=== PATIENT | male | born 1955 | race Caucasian/White ===

== ENCOUNTER 2022-04-23 08:55 | Emergency (ER) | payer MEDICARE, BC ==
[2022-04-23] MEDS ORDERED: Sodium Chloride 0.9% 1,000 ML IV ONE (09:00)
[2022-04-23] MEDS ORDERED: Amiodarone 150 MG in Dextrose 5% in Water 100 ML IV ONE ×2 (09:40)
[2022-04-23 10:01] LABS: CARBON DIOXIDE,CO2 23.6 mmol/L (21.0-32.0); POTASSIUM,K 3.7 mmol/L (3.5-5.1)
== END 2022-04-23 20:05 ==
LOC: MW.ED 08:55
DX: I47.2 Ventricular tachycardia (principal); I10 Essential (primary) hypertension; Z79.899 Other long term (current) drug therapy; Z20.822 Contact with and (suspected) exposure to COVID-19
CPT/HCPCS: 36415; 71045; 80053; 83735; 83880; 84439; 84443; 84484; 85025; 85610; 85730; 93005; 96361; 96365; 96366; 96376; 99285; J0282; J7030; U0002

== ENCOUNTER 2022-09-20 11:41 | Emergency (ER) | payer MEDICARE, BC ==
[2022-09-20 12:28] LABS: CARBON DIOXIDE,CO2 26.1 mmol/L (21.0-32.0); POTASSIUM,K 3.9 mmol/L (3.5-5.1)
== END 2022-09-20 14:17 | disposition home or self-care (01) ==
LOC: MW.ED 11:41
DX: R11.10 Vomiting, unspecified (principal); R42 Dizziness and giddiness; Z95.0 Presence of cardiac pacemaker; Z79.899 Other long term (current) drug therapy
CPT/HCPCS: 36415; 71045; 71045-26; 80053; 83690; 83735; 84484; 85025; 85610; 93005; 99285

== ENCOUNTER 2022-09-24 10:31 | Emergency (ER) | payer MEDICARE, BC ==
[2022-09-24 13:04] LABS: CARBON DIOXIDE,CO2 25.4 mmol/L (21.0-32.0); POTASSIUM,K 4.7 mmol/L (3.5-5.1)
== END 2022-09-24 13:28 | disposition home or self-care (01) ==
LOC: MW.ED 10:31
DX: R00.2 Palpitations (principal); Z79.899 Other long term (current) drug therapy
CPT/HCPCS: 36415; 80053; 84443; 84484; 85025; 93005; 99285

== ENCOUNTER 2022-10-11 12:03 | Emergency (ER) | payer MEDICARE, BC ==
[2022-10-11] MEDS ORDERED: Sodium Chloride 0.9% 10 ML Syringe FLUSH PRN (12:19)
[2022-10-11] MEDS ORDERED: Sodium Chloride 0.9% 2.5 ML Syringe FLUSH PRN (12:19)
[2022-10-11 12:51] LABS: CARBON DIOXIDE,CO2 29.5 mmol/L (21.0-32.0); POTASSIUM,K 4.1 mmol/L (3.5-5.1)
== END 2022-10-11 14:03 | disposition home or self-care (01) ==
LOC: MW.ED 12:03
DX: R42 Dizziness and giddiness (principal); I10 Essential (primary) hypertension; Z79.899 Other long term (current) drug therapy
CPT/HCPCS: 36415; 71045; 80053; 84484; 85025; 85610; 93005; 99284; J3490

== ENCOUNTER 2023-04-19 11:48 | Emergency (ER) | payer MEDICARE, BC ==
[2023-04-19] MEDS ORDERED: Sodium Chloride 0.9% 1,000 ML IV ONE (12:33)
[2023-04-19] MEDS ORDERED: Pantoprazole 40 MG in Sodium Chloride 0.9% 10 ML IVPUSH ONE (12:44)
[2023-04-19 13:08] LABS: BASOPHILS PERCENT AUTO 0.4 % (0.0-1.5); EOSINOPHILS ABSOLUTE AUTO 0.4 K/uL (0.0-0.7); EOSINOPHILS PERCENT AUTO 5.1 % (0.0-7.0); HEMATOCRIT 44.7 % (38.0-50.0); HEMOGLOBIN 15.2 g/dL (13.0-17.0); LYMPHOCYTES ABSOLUTE AUTO 1.4 K/uL (0.6-2.4); LYMPHOCYTES PERCENT AUTO 18.9 % (16.0-40.0); MEAN CORPUSCULAR HEMOGLOBIN 30.1 pg (27.0-32.0); MEAN CORPUSCULAR VOLUME 88.5 fL (80.0-98.0); MONOCYTES ABSOLUTE AUTO 0.7 K/uL (0.0-0.8); MONOCYTES PERCENT AUTO 9.5 % (0.0-15.0); NEUTROPHILS ABSOLUTE AUTO 4.9 K/uL (1.4-5.7); NEUTROPHILS PERCENT AUTO 66.1 % (48.0-80.0); NRBC ABSOLUTE 0 K/uL; PLATELET COUNT,PLT 175 K/uL (150-400); RED BLOOD CELL COUNT 5.05 M/uL (4.50-5.90); WHITE BLOOD CELL COUNT,WBC 7.46 K/uL (4.0-11.0)
[2023-04-19 13:24] LABS: A/G RATIO 1.1 (0.9-1.6); ALBUMIN 4.1 g/dL (3.4-5.0); BILIRUBIN TOTAL 0.7 mg/dL (0.2-1.0); CALCIUM 9.4 mg/dL (8.5-10.1); CARBON DIOXIDE,CO2 26.9 mmol/L (21.0-32.0); CREATININE 1.1 mg/dL (0.8-1.3); EST CRCL DRUG DOSING (CG) 68.45 mL/min; POTASSIUM,K 4.3 mmol/L (3.5-5.1); PROTEIN TOTAL,TP 7.9 g/dL (6.4-8.2)
== END 2023-04-19 14:22 | disposition home or self-care (01) ==
LOC: MW.ED 11:48
DX: K21.9 Gastro-esophageal reflux disease without esophagitis (principal); K40.91 Unilateral inguinal hernia, without obstruction or gangrene, recurrent; I10 Essential (primary) hypertension; Z79.899 Other long term (current) drug therapy; Z95.810 Presence of automatic (implantable) cardiac defibrillator
CPT/HCPCS: 36415; 80053; 83690; 85025; 96361; 96374; 99284; C9113; J3490; J7030

== ENCOUNTER 2023-06-07 10:27 | Emergency (ER) | payer MEDICARE, BC ==
[2023-06-07] MEDS ORDERED: Sodium Chloride 0.9% 1,000 ML IV ONE (10:33)
[2023-06-07] MEDS ORDERED: Morphine 4 MG/ML Syringe IVPUSH ONE (10:35)
[2023-06-07] MEDS ORDERED: Ondansetron 4 MG/2 ML SDV IVPUSH ONE (10:35)
[2023-06-07] MEDS ORDERED: Clindamycin Phosphate in D5W 600 MG in Premix Bag 1 BAG IV ONE ×2 (10:46)
[2023-06-07 11:40] LABS: BASOPHILS PERCENT AUTO 0.2 % (0.0-1.5); EOSINOPHILS ABSOLUTE AUTO 0.1 K/uL (0.0-0.7); EOSINOPHILS PERCENT AUTO 0.6 % (0.0-7.0); HEMATOCRIT 38.3 % (38.0-50.0); HEMOGLOBIN 12.6 g/dL (13.0-17.0); LYMPHOCYTES ABSOLUTE AUTO 0.6 K/uL (0.6-2.4); LYMPHOCYTES PERCENT AUTO 4.4 % (16.0-40.0); MEAN CORPUSCULAR HEMOGLOBIN 28.4 pg (27.0-32.0); MEAN CORPUSCULAR HGB CONC 32.9 g/dL (31.0-37.0); MEAN CORPUSCULAR VOLUME 86.5 fL (80.0-98.0); MONOCYTES ABSOLUTE AUTO 1.2 K/uL (0.0-0.8); MONOCYTES PERCENT AUTO 9.4 % (0.0-15.0); NEUTROPHILS PERCENT AUTO 85.4 % (48.0-80.0); NRBC ABSOLUTE 0 K/uL; PLATELET COUNT,PLT 365 K/uL (150-400); RED BLOOD CELL COUNT 4.43 M/uL (4.50-5.90); WHITE BLOOD CELL COUNT,WBC 12.83 K/uL (4.0-11.0)
[2023-06-07 12:02] LABS: A/G RATIO 0.5 (0.9-1.6); ALANINE AMINOTRANSFERASE,ALT 18 IU/L (14-63); ALBUMIN 2.5 g/dL (3.4-5.0); ALKALINE PHOSPHATASE 72 U/L (46-116); ASPARTATE AMNIOTRANSFERASE,AST 23 IU/L (15-37); BILIRUBIN TOTAL 0.7 mg/dL (0.2-1.0); BLOOD UREA NITROGEN,BUN 23 mg/dL (7.0-18.0); C-REACTIVE PROTEIN >12.00 mg/dL (0.00-0.90); CALCIUM 9.7 mg/dL (8.5-10.1); CARBON DIOXIDE,CO2 27.6 mmol/L (21.0-32.0); CHLORIDE,CL 99 mmol/L (98-107); CREATININE 1.2 mg/dL (0.8-1.3); EST CRCL DRUG DOSING (CG) 62.75 mL/min; ESTIMATED GFR 66 mL/min (>60); GLUCOSE RANDOM 127 mg/dL (74-106); MAGNESIUM 2.1 mg/dL (1.8-2.4); POTASSIUM,K 4.4 mmol/L (3.5-5.1); PROTEIN TOTAL,TP 7.2 g/dL (6.4-8.2); SODIUM,NA 136 mmol/L (136-148)
[2023-06-07 12:19] LABS: LACTIC ACID 1.1 mmol/L (0.4-2.0)
[2023-06-07] MEDS ORDERED: Iopamidol 755 MG/ML 500 ML Multipack Bottle IVPUSH STA (16:13)
== END 2023-06-07 15:48 | disposition home or self-care (01) ==
LOC: MW.ED 10:27
DX: L03.311 Cellulitis of abdominal wall (principal); I10 Essential (primary) hypertension; Z79.899 Other long term (current) drug therapy
CPT/HCPCS: 36415; 74177; 80053; 83605; 83735; 85025; 86140; 87040; 87070; 87075; 87205; 96365; 96375; 99285; J2270; J2405; J3490; J7030; Q9967; 99284

== ENCOUNTER 2023-06-09 11:48 | Emergency (ER) | payer MEDICARE, BC ==
[2023-06-09] MEDS ORDERED: Sodium Chloride 0.9% 1,000 ML IV ONE (11:50)
[2023-06-09 12:45] LABS: BASOPHILS PERCENT AUTO 0.2 % (0.0-1.5); EOSINOPHILS ABSOLUTE AUTO 0.2 K/uL (0.0-0.7); EOSINOPHILS PERCENT AUTO 2.3 % (0.0-7.0); HEMATOCRIT 35.3 % (38.0-50.0); HEMOGLOBIN 11.6 g/dL (13.0-17.0); LYMPHOCYTES ABSOLUTE AUTO 0.7 K/uL (0.6-2.4); LYMPHOCYTES PERCENT AUTO 7.5 % (16.0-40.0); MEAN CORPUSCULAR HEMOGLOBIN 28.6 pg (27.0-32.0); MEAN CORPUSCULAR HGB CONC 32.9 g/dL (31.0-37.0); MEAN CORPUSCULAR VOLUME 86.9 fL (80.0-98.0); MONOCYTES ABSOLUTE AUTO 0.9 K/uL (0.0-0.8); NEUTROPHILS ABSOLUTE AUTO 7.5 K/uL (1.4-5.7); NRBC ABSOLUTE 0 K/uL; PLATELET COUNT,PLT 395 K/uL (150-400); RED BLOOD CELL COUNT 4.06 M/uL (4.50-5.90); WHITE BLOOD CELL COUNT,WBC 9.39 K/uL (4.0-11.0)
[2023-06-09 13:19] LABS: A/G RATIO 0.6 (0.9-1.6); ALBUMIN 2.5 g/dL (3.4-5.0); BILIRUBIN TOTAL 0.6 mg/dL (0.2-1.0); CALCIUM 9.5 mg/dL (8.5-10.1); CARBON DIOXIDE,CO2 25.5 mmol/L (21.0-32.0); CREATININE 1.4 mg/dL (0.8-1.3); EST CRCL DRUG DOSING (CG) 53.79 mL/min; POTASSIUM,K 4.7 mmol/L (3.5-5.1)
[2023-06-09] MEDS ORDERED: Iopamidol 755 Mg/ML 100 ML Bottle IVPUSH ONE (15:19)
[2023-06-09 16:41] LABS: APPEARANCE,URINE CLEAR; BILIRUBIN,URINE NEGATIVE (NEGATIVE); COLOR,URINE YELLOW; GLUCOSE,URINE NEGATIVE (NEGATIVE); KETONES,URINE NEGATIVE (NEGATIVE); LEUKOCYTE ESTERASE,URINE NEGATIVE (NEGATIVE); NITRITE,URINE NEGATIVE (NEGATIVE); OCCULT BLOOD,URINE NEGATIVE (NEGATIVE); PROTEIN,URINE NEGATIVE (NEGATIVE); UROBILINOGEN,URINE 0.2 EU/dL (<2.0)
== END 2023-06-09 16:52 | disposition home or self-care (01) ==
LOC: MW.ED 11:48
DX: K40.91 Unilateral inguinal hernia, without obstruction or gangrene, recurrent (principal); N43.3 Hydrocele, unspecified; N99.89 Other postprocedural complications and disorders of genitourinary system; I10 Essential (primary) hypertension; E78.5 Hyperlipidemia, unspecified; Z95.0 Presence of cardiac pacemaker; Z79.899 Other long term (current) drug therapy
CPT/HCPCS: 36415; 74177; 80053; 81003; 85025; 96360; 96361; 99284; J7030; Q9967

== ENCOUNTER 2023-09-13 12:57 | Emergency (ER) | payer MEDICARE, BC ==
[2023-09-13 13:46] LABS: BASOPHILS ABSOLUTE AUTO 0.04 K/uL (0.00-0.20); BASOPHILS PERCENT AUTO 0.4 % (0.0-1.0); EOSINOPHILS ABSOLUTE AUTO 0.18 K/uL (0.00-0.45); EOSINOPHILS PERCENT AUTO 1.6 % (0.0-6.0); HEMATOCRIT 33.2 % (42.0-52.0); HEMOGLOBIN 10.9 g/dL (14.0-18.0); IMMATURE GRAN ABSOLUTE AUTO 0.03 K/uL (0.00-0.05); IMMATURE GRAN PERCENT AUTO 0.3 % (0.0-0.4); LYMPHOCYTES ABSOLUTE AUTO 0.98 K/uL (1.00-4.80); LYMPHOCYTES PERCENT AUTO 8.7 % (24.0-44.0); MEAN CORPUSCULAR HEMOGLOBIN 26.1 pg (28.0-32.0); MEAN CORPUSCULAR HGB CONC 32.8 g/dL (32.0-36.0); MEAN CORPUSCULAR VOLUME 79.6 fL (83.0-99.0); MEAN PLATELET VOLUME 10.2 fL (9.4-12.4); MONOCYTES ABSOLUTE AUTO 1.41 K/uL (0.00-0.80); MONOCYTES PERCENT AUTO 12.5 % (0.0-8.0); NEUTROPHILS ABSOLUTE AUTO 8.66 K/uL (1.80-7.70); NEUTROPHILS PERCENT AUTO 76.5 % (41.0-71.0); PLATELET COUNT,PLT 306 K/uL (150-400); RED BLOOD CELL COUNT 4.17 M/uL (4.52-5.90)
[2023-09-13 14:07] LABS: A/G RATIO 0.6 (0.9-1.6); BILIRUBIN TOTAL 0.4 mg/dL (0.2-1.0); CALCIUM 10.3 mg/dL (8.5-10.1); CARBON DIOXIDE,CO2 27.9 mmol/L (21.0-32.0); CREATININE 1.5 mg/dL (0.8-1.3); EST CRCL DRUG DOSING (CG) 50.2 mL/min; POTASSIUM,K 4.6 mmol/L (3.5-5.1)
[2023-09-13] MEDS ORDERED: Iopamidol 755 MG/ML 500 ML Multipack Bottle IVPUSH STA (14:26)
[2023-09-13] MEDS ORDERED: Sodium Chloride 0.9% 1,000 ML IV ONE (14:26)
[2023-09-13 15:53] LABS: APPEARANCE,URINE CLEAR; BILIRUBIN,URINE NEGATIVE (NEGATIVE); COLOR,URINE YELLOW; GLUCOSE,URINE NEGATIVE (NEGATIVE); KETONES,URINE TRACE mg/dL (NEGATIVE); LEUKOCYTE ESTERASE,URINE NEGATIVE (NEGATIVE); NITRITE,URINE NEGATIVE (NEGATIVE); OCCULT BLOOD,URINE NEGATIVE (NEGATIVE); PROTEIN,URINE NEGATIVE (NEGATIVE); UROBILINOGEN,URINE 0.2 EU/dL (<2.0)
== END 2023-09-13 16:30 | disposition home or self-care (01) ==
LOC: MW.ED 12:57
DX: K40.91 Unilateral inguinal hernia, without obstruction or gangrene, recurrent (principal); I10 Essential (primary) hypertension; Z79.899 Other long term (current) drug therapy
CPT/HCPCS: 36415; 74177; 80053; 81003; 85025; 96360; 99284; J7030; Q9967

== ENCOUNTER 2023-09-15 19:23 | Emergency (ER) | payer MEDICARE, BC ==
[2023-09-15] MEDS ORDERED: fentaNYL 50 MCG/ML SDV IVPUSH ONE (19:39)
[2023-09-15] MEDS ORDERED: Sodium Chloride 0.9% 10 ML Syringe FLUSH PRN (19:39)
[2023-09-15] MEDS ORDERED: Ondansetron 4 MG/2 ML SDV IVPUSH ONE (19:39)
[2023-09-15] MEDS ORDERED: Ketorolac 30 MG/ML SDV IVPUSH ONE (19:39)
[2023-09-15] MEDS ORDERED: Sodium Chloride 0.9% 2.5 ML Syringe FLUSH PRN (19:39)
[2023-09-15] MEDS ORDERED: Sodium Chloride 0.9% 1,000 ML IV ONE ×3 (19:39→22:34)
[2023-09-15] MEDS ORDERED: Piperacillin/Tazobactam 4.5 GM in Sodium Chloride 0.9% 100 ML IV ONE (19:39)
[2023-09-15 20:29] LABS: BASOPHILS ABSOLUTE AUTO 0.04 K/uL (0.00-0.20); BASOPHILS PERCENT AUTO 0.3 % (0.0-1.0); EOSINOPHILS ABSOLUTE AUTO 0.17 K/uL (0.00-0.45); EOSINOPHILS PERCENT AUTO 1.3 % (0.0-6.0); HEMATOCRIT 31.5 % (42.0-52.0); HEMOGLOBIN 10.3 g/dL (14.0-18.0); IMMATURE GRAN PERCENT AUTO 0.8 % (0.0-0.4); LYMPHOCYTES PERCENT AUTO 6.2 % (24.0-44.0); MEAN CORPUSCULAR HEMOGLOBIN 26.3 pg (28.0-32.0); MEAN CORPUSCULAR HGB CONC 32.7 g/dL (32.0-36.0); MEAN CORPUSCULAR VOLUME 80.4 fL (83.0-99.0); MEAN PLATELET VOLUME 10.3 fL (9.4-12.4); MONOCYTES ABSOLUTE AUTO 1.22 K/uL (0.00-0.80); MONOCYTES PERCENT AUTO 9.5 % (0.0-8.0); NEUTROPHILS ABSOLUTE AUTO 10.48 K/uL (1.80-7.70); NEUTROPHILS PERCENT AUTO 81.9 % (41.0-71.0); PLATELET COUNT,PLT 294 K/uL (150-400); RED BLOOD CELL COUNT 3.92 M/uL (4.52-5.90); WHITE BLOOD CELL COUNT,WBC 12.81 K/uL (3.9-11.3)
[2023-09-15 20:44] LABS: INR 1.11 (0.86-1.11); PTT,PARTIAL THROMBOPLSTIN TIME 34.9 SEC (23.9-30.7)
[2023-09-15 20:54] LABS: A/G RATIO 0.6 (0.9-1.6); ALBUMIN 2.8 g/dL (3.4-5.0); BILIRUBIN TOTAL 0.3 mg/dL (0.2-1.0); CALCIUM 10.5 mg/dL (8.5-10.1); CARBON DIOXIDE,CO2 29.6 mmol/L (21.0-32.0); CREATININE 1.6 mg/dL (0.8-1.3); EST CRCL DRUG DOSING (CG) 45.63 mL/min; POTASSIUM,K 5.5 mmol/L (3.5-5.1); PROTEIN TOTAL,TP 7.6 g/dL (6.4-8.2)
[2023-09-15 20:58] LABS: LACTIC ACID 1.9 mmol/L (0.4-2.0)
[2023-09-16] MEDS ORDERED: LORazepam 2 MG/ML SDV IVPUSH ONE (00:08)
[2023-09-16 00:50] LABS: APPEARANCE,URINE SLT CLOUDY; BILIRUBIN,URINE NEGATIVE (NEGATIVE); COLOR,URINE YELLOW; GLUCOSE,URINE NEGATIVE (NEGATIVE); KETONES,URINE TRACE mg/dL (NEGATIVE); LEUKOCYTE ESTERASE,URINE NEGATIVE (NEGATIVE); NITRITE,URINE NEGATIVE (NEGATIVE); OCCULT BLOOD,URINE TRACE-INTACT (NEGATIVE); PH,URINE 5.5 (5.0-8.0); PROTEIN,URINE 30 mg/dL (NEGATIVE)
[2023-09-16 00:59] LABS: BACTERIA,URINE FEW (NEGATIVE); CALCIUM OXALATE CRYSTALS,URINE FEW (NEGATIVE); MUCUS,URINE LIGHT (NONE-MOD); SQUAMOUS EPITHELIAL CELLS,UR NOT SEEN; WBC,URINE 0-2 (0-5/HPF)
== END 2023-09-16 01:35 ==
LOC: MW.ED 19:23
DX: N49.2 Inflammatory disorders of scrotum (principal); D72.829 Elevated white blood cell count, unspecified; I10 Essential (primary) hypertension; Z79.899 Other long term (current) drug therapy
CPT/HCPCS: 36415; 76870; 80053; 81001; 83605; 85025; 85610; 85730; 87040; 87075; 93976; 96361; 96365; 96375; 99285; J1885; J2060; J2405; J2543; J3010; J3490; J7030